=== PATIENT | male | born 1945 | race Caucasian/White ===

== ENCOUNTER 2024-08-03 13:12 | Emergency (ER) | payer OTHER ==
[2024-08-03 13:24] VITALS: BMI 27.3
[2024-08-03 15:03] LABS: ABSOLUTE IMMATURE GRANULOCYTES 0.02 x10^3/uL (0.0-0.031); BASOPHILS # 0.02 x10^3/uL (0.01-0.08); HEMATOCRIT 38.3 % (40.1-51.0); HEMOGLOBIN 12.7 g/dL (13.7-17.5); MCHC 33.2 g/dl (32.3-36.5); MEAN CELL VOLUME 98.7 fl (79.0-92.2); MEAN PLT VOLUME 9.6 fl (9.4-12.4); MONOCYTE % 4.1 % (5.3-12.2); PLATELET COUNT 129 x10^3/uL (163-337); RDW 13.4 % (12.2-16.6)
[2024-08-03 15:19] LABS: POTASSIUM 4.4 mmol/L (3.5-5.1)
[2024-08-03 15:21] LABS: CALCIUM 9.2 mg/dL (8.5-10.1)
[2024-08-03 15:22] LABS: ALBUMIN 3.5 g/dl (3.4-5.0); BLOOD UREA NITROGEN 18.4 mg/dL (7-18)
[2024-08-03 15:25] LABS: CREATININE 1.2 mg/dL (0.55-1.3)
[2024-08-03 15:26] LABS: BILIRUBIN,TOTAL 0.7 mg/dL (0.2-1); TOT PROT 9.3 g/dl (6.4-8.2)
[2024-08-03] MEDS ORDERED: ONDANSETRON 8 MG TABLET (FP) PO ONE (15:30)
[2024-08-03] MEDS: ONDANSETRON 8 MG TABLET (FP) PO ONE (15:33)
[2024-08-03] MEDS ORDERED: FAMOTIDINE 10 MG TABLET ONE (16:25)
[2024-08-03] MEDS: FAMOTIDINE 10 MG TABLET PO ONE (16:31)
[2024-08-03] MEDS: ALBUTEROL SO4 HFA INHALER IH ONE (16:33)
[2024-08-03 16:49] VITALS: BP 147/83; PULSE 106; RESP 16; TEMP 99.1
== END 2024-08-03 16:49 | disposition home or self-care (01) ==
LOC: JER 13:12
DX: J10.1 Influenza due to other identified influenza virus with other respiratory manifestations (principal); R11.0 Nausea; R05.9 Cough, unspecified; R63.0 Anorexia
CPT/HCPCS: 0241U-QW; 36415; 71045-TC-FY; 80053; 85025; 99284-25